=== PATIENT | female | born 1965 | race Caucasian/White ===

== ENCOUNTER → 2016-06-04 09:31 | Day surgery (SDC) | payer OTHER ==
[~2016-06-04 09:31] MED LIST: Buffered Lidocaine 1% SYR 3ML* 3 ML/SYR SYRINGE INTRADERM ONE; Buffered Lidocaine 1% SYR 3ML* 3 ML/SYR SYRINGE ONE; Bupivacaine 0.25% SDV* 30 ML ONE; Dexamethasone IV* 4 MG/ML 1 ML (4 MG) IV SLOW PU ONE; Dexamethasone IV* 4 MG/ML 1 ML (4 MG) ONE; Famotidine IV* 10 MG/ML 2 ML (20 mg) IV ONE; Famotidine IV* 10 MG/ML 2 ML (20 mg) ONE; Ketorolac INJ* 30 MG/ML 1 ML VIAL ONE; Lidocaine 2% PF * 5 ML VIAL ONE; Ondansetron INJ* 2 MG/ML VIAL ONE; PROCHLORPERAZINE INJ 5 MG/ML 2 ML VIAL IV PRN; Propofol* 10 MG/ML 20 ML BTL IV PUSH ONE; ceFAZolin 2 GM PREMIX (*) 2 GM/50 ML BAG IVPB ONE; fentaNYL* 50 MCG/ML 2 ML VIAL (100 MCG VIAL) IV PRN; fentaNYL* 50 MCG/ML 2 ML VIAL (100 MCG VIAL) ONE; oxyCODONE/Acetamin 5/325 MG* TAB PO PRN
[2016-06-04 14:51] VITALS: BP 117/63
--- NOTE | 2016-06-11 12:08 | OP ---
OPERATIVE REPORT: DATE OF OPERATION: 06/04/16 DATE OF : 65 SURGEON: Leeroy Coffman MD. TRANSMISSION SPECIALIST: JAIME Jay. ANESTHESIOLOGIST: "Dr. Steel." ANESTHESIA: General. 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 OPERATIVE PROCEDURE: Right radial head excision. INDICATIONS: Tiki is a 51-year-old female. She has nail-patella syndrome. She has had progressive right elbow pain. I as well as my partner, Dr. Ricks , had performed a workup of the elbow pain. Ultimately, most of her symptoms are on the lateral side of the elbow and it seems like she has most of her pain with pronation and supination and quite a bit of tenderness laterally, so we talked about a radial head excision. She certainly understands that she could have progression of her arthritis and need further work done to the elbow. We talked about the risks and benefits. FINDINGS: As expected. ESTIMATED BLOOD LOSS: 5 mL. COMPLICATIONS: None. DESCRIPTION OF PROCEDURE: Tiki was seen in the preoperative holding area and the correct site and side were marked. We came back to the operating room where general anesthesia was induced and the arm was prepped and draped in the usual fashion and a formal time-out was performed. An incision was made over the lateral aspect of the elbow in Jerzy-Langenbeck type fashion. Dissection was carried down through the subcutaneous tissue to the fascia. A line between the mid aspect of the lateral epicondyle and the equator of the radial head was identified. I stayed just anterior to this line and made my incision through the fascia. The fibers of the supinator were bluntly split and care was taken to make sure that I did not injure the posterior interosseous nerve. The subfascial layer was split to expose the rest of the radial head and neck. The annular ligament was of course incised longitudinally. I then went ahead and carefully placed baby Sarita's anterior and posterior on the radial neck. I then went ahead and used the sagittal saw to make the cut. The radial head was removed and the area was irrigated. I freshened up the cut just one time with the sagittal saw. I then irrigated and was very satisfied with the excision, so I went ahead and irrigated the wound and closed the fascia and annular ligament in 1 layer with some 0 Vicryl suture. I then reapproximated the skin with some 3-0 Vicryl and closed the skin with some 4-0 nylon suture. The area was then infiltrated with 0.25% Marcaine. I bandaged the wound with Xeroform, 4x4s, sterile Webril, and an Palomo wrap. She was then woken back up and taken to the recovery room in stable condition. [id number] #: [id number] MTDD
== END | disposition home or self-care (01) ==
LOC: OREAST 09:31
PROVIDERS: ATTEND Orthopaedic Surgery Hand Surgery
DX: M19.221 Secondary osteoarthritis, right elbow (principal); Q87.2 Congenital malformation syndromes predominantly involving limbs; J44.9 Chronic obstructive pulmonary disease, unspecified; E78.5 Hyperlipidemia, unspecified; F17.210 Nicotine dependence, cigarettes, uncomplicated
CPT/HCPCS: 88304; 88311; J0690; J1100; J1885; J2405; J2704; J3010

== ENCOUNTER 2019-09-03 08:20 | Emergency (ER) | payer OTHER ==
--- NOTE | 2019-09-03 08:36 | ED ---
HPI Chest Pain - HPI Summary HPI Summary: 54 year old F presenting to [facility] with a chief complaint of intermittent chest pain which she describes as a fluttering with associated cough and nausea since a couple of days ago. She states that her cough produces a clear phlegm. No SOB , No fever. Patient reports dizziness this morning which has improved. Patient also states that she was bitten by an unknown insect, ?spider on her back last week - some itching. The patient rates the pain 7/10 in severity. No analgesia taken. Symptoms aggravated by nothing. Symptoms alleviated by nothing. Patient denies any vomiting, shortness of breath, wheezing, or fever. Patient has not taken any analgesia for her pain. She does have a history of fibromyalgia - does not take analgesia. She also denies any previous occurrence of her symptoms. No history of CAD, DM, HTN, HLD. Patient's medication as entered in EMR by sound editor reviewed this visit. Allergy list reviewed. After initial H+P - pt does report she has been turning over / rotatiling a garden this week - History of Current Complaint Chief Complaint: EDChestPainROMI Time Seen by Provider: 09/03/19 08:28 Hx Obtained From: Patient Onset/Duration: Started Days Ago Timing: Intermittent Current Severity: Moderate Pain Intensity: 7 Pain Scale Used: 0-10 Numeric Character: Fluttering Aggravating Factor(s): Nothing Alleviating Factor(s): Nothing Associated Signs and Symptoms: Positive: Dizziness, Nausea, Cough. Negative: Shortness of Breath, Fever, Vomiting, Wheezing - Allergy/Home Medications Allergies/Adverse Reactions: Allergies Allergy/AdvReac Type Severity Reaction Status Date / Time codeine Allergy Nausea And Verified 09/03/19 09:07 Vomiting dicyclomine Allergy Anaphylatic Verified 09/03/19 09:07 Shock oxaprozin Allergy Hives Verified 09/03/19 09:07 Home Medications: Home Medications Albuterol HFA INHALER* [Ventolin HFA Inhaler*] 2 puff INH Q4H PRN 05/28/16 [ History Confirmed 09/03/19] Amitriptyline TAB* [Elavil TAB*] 30 mg PO BEDTIME 05/28/16 [History Confirmed ] Budesonide/Formote 80/4.5(NF) [Symbicort 80/4.5 (NF)] 2 puff INH BID 05/28/16 [ History Confirmed 09/03/19] Ergocalciferol (Vitamin D2) [Vitamin D2] 50,000 units PO .EVERY 2 WEEKS [History Confirmed 09/03/19] Loperamide CAP* [Imodium CAP*] 2 mg PO Q3H PRN MDD 8 tabs 05/28/16 [History Confirmed 09/03/19] Multivitamin [One Daily] 1 tab PO DAILY 05/28/16 [History Confirmed 09/03/19] diphenhydrAMINE HCl [Benadryl Allergy] 25 mg PO Q6H PRN 05/28/16 [History Confirmed 09/03/19] Acetaminophen TAB* [Tylenol TAB*] 650 mg PO QID PRN 09/03/19 [History Confirmed 09/03/19] Cannabidiol (CBD) Extract (NF) [Epidiolex (NF)] 3 drop SL DAILY 09/03/19 [ History Confirmed 09/03/19] Cholecalciferol TAB* [Vitamin D TAB*] 1,000 unit PO DAILY 09/03/19 [History Confirmed 09/03/19] DOXYcycline CAP(*) [DOXYcycline 100MG CAP(*)] 100 mg PO BID 09/03/19 [History Confirmed 09/03/19] Eluxadoline [Viberzi] 100 mg PO DAILY 09/03/19 [History Confirmed 09/03/19] Ipratropium/Albuterol Sulfate [Iprat-Albut 0.5-3(2.5) mg/3 ml] 3 ml INH .Q4-6H PRN 09/03/19 [History Confirmed 09/03/19] Montelukast Sodium TAB* [Singulair TAB*] 10 mg PO QPM 09/03/19 [History Confirmed 09/03/19] Pantoprazole TAB * [Protonix TAB*] 40 mg PO DAILY 09/03/19 [History Confirmed ] PMH/Surg Hx/FS Hx/Imm Hx Endocrine/Hematology History: Reports: Other Endocrine/Hematological Disorders - Chronic fatigue Cardiovascular History: Denies: Hx Deep Vein Thrombosis, Hx Pacemaker/ICD Respiratory History: Reports: Hx Asthma, Hx Chronic Obstructive Pulmonary Disease (COPD) Denies: Hx Pulmonary Embolism GI History: Reports: Hx Gastroesophageal Reflux Disease - OTC ANTACIDS PRN, Hx Hiatal Hernia, Hx Irritable Bowel Musculoskeletal History: Reports: Hx Arthritis - LOWER BACK, "ALL OVER, Hx Fibromyalgia, Other Musculoskeletal History - DDD Sensory History: Reports: Hx Contacts or Glasses - GLASSES Denies: Hx Hearing Aid Opthamlomology History: Reports: Hx Contacts or Glasses - GLASSES Neurological History: Reports: Hx Headaches - HEADAHCES THAT GUAJARDO- ROUTINE MEDICATION FOR, Other Neuro Impairments/Disorders - NAIL PATELLA SYNDROME Psychiatric History: Reports: Hx Anxiety - ROUTINE MEDICATION FOR, Hx Depression - ROUTINE MEDICATION FOR - Surgical History Surgery Procedure, Year, and Place: LOWER BACK SURGERY. HYSTERECTOMY Hx Anesthesia Reactions: No Infectious Disease History: No Infectious Disease History: Denies: Traveled Outside the [place] in Last 30 Days - Family History Known Family History: Positive: Unknown - Patient was adopted - Social History Alcohol Use: Occasionally Substance Use Type: Reports: None Smoking Status (MU): Light Every Day Tobacco Smoker Amount Used/How Often: 1/2 PPD X 30 YEARS Have You Smoked in the Last Year: Yes Review of Systems Negative: Fever Positive: Chest Pain Respiratory: Negative - Wheezing Positive: Cough. Negative: Shortness Of Breath Positive: Diarrhea, Nausea. Negative: Vomiting Positive: Other - Bite on her back Neurological/Mental Status: Other - Dizziness All Other Systems Reviewed And Are Negative: Yes Physical Exam - Summary Physical Exam Summary: Vital Signs Reviewed: Yes A+Ox3, no distress Eyes: Conjunctiva Clear, JUDD. EOM intact and full ENT: Hearing grossly normal TM x 2 clear, mmoist, uvula midline, no exudate, no erythema Neck: Positive: Supple Respiratory: Positive: No respiratory distress, No accessory muscle use + CTA throughout no w/r speaking full, easy sentences Cardiovascular: RRR nl s1, s2 no m/r CBT <2 sec, no bruits + TTP along anterior chest wall - reproducible with palpation and extremitiy movement against resistance abd soft + BS nt/nd no guarding, no distension Musculoskeletal Exam: JEFF x 4 without difficulty Strength Intact, ROM Intact Neurological: Positive: Alert, + sensation throughout Psychological: Positive: Normal Response To examiner Skin: Positive: no rash, no ecchymosis Triage Information Reviewed: Yes Vital Signs On Initial Exam: Initial Vitals Temp Pulse Resp BP Pulse Ox 97.8 F 76 18 142/75 98 09/03/19 08:21 04/09/20 08:21 09/03/19 08:21 09/03/19 08:21 09/03/19 08:21 Vital Signs Reviewed: Yes Procedures - Sedation Patient Received Moderate/Deep Sedation with Procedure: No Diagnostics - Vital Signs Vital Signs Temp Pulse Resp BP Pulse Ox 09/03/19 08:21 97.8 F 76 18 142/75 98 - Laboratory Result Diagrams: 09/03/19 08:44 09/03/19 08:44 Lab Statement: Any lab studies that have been ordered have been reviewed, and results considered in the medical decision making process. - Radiology Chest x-ray Radiology Interpretation Completed By: Radiologist Summary of Radiographic Findings: No acute cardiopulmonary process by radiograph. ED physician has reviewed this report. - EKG 08:29 Cardiac Rate: NL - 69 BPM EKG Rhythm: Sinus Rhythm Summary of EKG Findings: No acute ST, T changes. ED physician has reviewed and interpreted this EKG. Re-Evaluation - Re-Evaluation First Eval Re-Evaluation Time: 09:35 Change: Improved Comment: Pt states pain improved following APAP. Feeling better. reviewed labs. Will check second trop - anticipate discharge. Pt comfortable and in agree with plan. no needs Second Eval Re-Evaluation Time: 11:25 Comment: second trop neg. reviewed with pt. will discharge home. f/u with PCP. pt comfortable and in agreement with plan Chest Pain Course/Dx - Course Course Of Treatment: Patient presents to urgent care reporting pain in her left anterior chest intermittently to 3 days. Patient states times pain makes it feel like she can't take a deep breath and feels like her heart races. Patient states she felt a little dizzy but this is resolved. No fever, chills, rash. Patient does have a possibly the left upper back but she has to be checked as well. Patient cough with some clear mucus at times. No abdominal pain. Mild nausea but no vomiting. Patient states she does feel anxious. Patient states this is baseline for her as well as fibromyalgia. No analgesic taken. On exam vital signs are stable. Patient's EKG is unremarkable. Patient does have reproducible reducible left anterior chest wall pain is worse with direct palpation as well as range of motion. No bruits. Otherwise lungs are clear concerning exam. We'll check labs. We'll do chest x-ray. Give aspirin Tylenol and reassess. Patient comfortable and agreeable with plan. - Diagnoses Provider Diagnoses: Chest pain Discharge ED - Sign-Out/Discharge Documenting (check all that apply): Patient Departure - Discharge Plan Condition: Stable Disposition: HOME Patient Education Materials: Chest Pain (ED) Referrals: Driss Mancuso MD [Medical Doctor] - Additional Instructions: - Stay well hydrated - drink plenty of non-alcoholic, non-caffinated beverages - Okay to alternate ibuprofen (Advil, Motrin) and tylenol every 3 hours for pain. Take with food. Do NOT take for more than4-5 days - take with food - Apply heat to your chest wall - gently stretching exercises - Avoid vigorous work - Contact your doctor today to schedule a follow-up appointment - contact your doctor or return with questions or concerns - Billing Disposition and Condition Condition: STABLE Disposition: Home - Attestation Statements Document Initiated by Scribe: Yes Documenting Scribe: Syl Cornejo Provider For Whom Scribe is Documenting (Include Credential): Susanna Flood MD Scribe Attestation: Syl Mckeon scribed for Susanna Flood MD on 09/03/19 at 1131. Scribe Documentation Reviewed: Yes Provider Attestation: The documentation as recorded by the Syl page accurately reflects the service I personally performed and the decisions made by , Susanna Flood MD Status of Scribe Document: Viewed
[2019-09-03] MEDS ORDERED: Aspirin 81 mg CHEW TAB* 81 MG TAB.CHEW PO ONE (08:40)
[2019-09-03] MEDS ORDERED: Acetaminophen TAB* 325 MG PO ONE (08:40)
[2019-09-03] MEDS ORDERED: NS 0.9% 1000 ML** 1,000 ML IV ONE (08:41)
[2019-09-03 08:51] LABS: ABS Basophils 0.1 10^3/ul (0-0.2); ABS Eosinophils 0.2 10^3/ul (0-0.6); ABS Lymphocytes 2.2 10^3/ul (1.0-4.8); ABS Monocytes 0.4 10^3/ul (0-0.8); ABS Neutrophils 2.6 10^3/ul (1.5-7.7); Eosinophil % 4.3 %; Hematocrit 38 % (35-47); Hemoglobin 13.2 g/dL (12.0-16.0); Mean Corpuscular HGB Conc 35 g/dL (31-36); Mean Corpuscular Hemoglobin 34 pg (27-31); Mean Corpuscular Volume 97 fL (80-97); Mean Platelet Volume 8.5 fL (7.4-10.4); Nucleated Red Blood Cells % 0.1; Platelet Count 282 10^3/uL (150-450); Red Blood Count 3.92 10^6 /uL (3.70-4.87); Red Cell Distribution Width 13 % (10-15); White Blood Count 5.5 10^3/uL (3.5-10.8)
[2019-09-03 09:19] LABS: Albumin 3.8 g/dL (3.2-5.2); Albumin/Globulin Ratio 1.7 (1-3); BUN/Creatinine Ratio 20.8 (8-20); Calcium 9.2 mg/dL (8.6-10.3); EGFR African American 145.5 (>60); EGFR Non-African American 120.2 (>60); Globulin 2.3 g/dL (2-4); Potassium 4.2 mmol/L (3.5-5.0); Total Bilirubin 0.3 mg/dL (0.2-1.0); Total Protein 6.1 g/dL (6.4-8.9)
[2019-09-03 11:45] VITALS: BP 128/71
== END 2019-09-03 11:43 | disposition home or self-care (01) ==
LOC: ED 08:20
DX: R07.9 Chest pain, unspecified (principal); F17.210 Nicotine dependence, cigarettes, uncomplicated; R05 Cough; R19.7 Diarrhea, unspecified; R11.0 Nausea; R51 Headache; F41.9 Anxiety disorder, unspecified; Z79.899 Other long term (current) drug therapy
CPT/HCPCS: 36415; 71045; 80053; 83605; 84443; 84484; 85025; 85379; 93005; 96360; 96361; 99283; A9270-GY